=== PATIENT | male | born 1955 | race Caucasian/White ===

== ENCOUNTER 2017-01-26 12:39 | Inpatient (IN) | payer OTHER, MEDICARE ==
[~2017-01-26] VITALS: Ht 180.3 cm; Wt 80.8 kg
[2017-02-03] MEDS ORDERED: POVIDONE IODINE 7.5% SCRUB 118 ML BOTTLE TOPICAL SCH (06:30)
[2017-02-03] MEDS ORDERED: INSULIN HUMAN REGULAR 1,000 UNITS/10 ML VIAL SQ PRN (06:30)
[2017-02-03] MEDS ORDERED: SODIUM CHLORID 0.9% 500 ML IV PRN (06:30)
[2017-02-03] MEDS ORDERED: LACTATED RINGER'S 1000 ML IV PRN (06:30)
[2017-02-03] MEDS ORDERED: VANCOMYCIN 1000 MG/NS 250 ML (for <70 kg) IV SCH ×2 (06:30)
[2017-02-03] MEDS ORDERED: CHLORHEXIDINE GLUCONATE 2 % 1 PACK (2 CLOTHS) TOPICAL PRN (06:30)
[2017-02-03] MEDS ORDERED: POVIDONE IODINE 5% (ANTISEPSIS KIT) 4 APPLICATIONS EACH NARE PRN (06:30)
[2017-02-03] MEDS ORDERED: METOPROLOL TARTRATE 25 MG TAB PO PRN (06:30)
[2017-02-03 08:01] LABS: BLOOD, URINE SMALL (NEG); GLUCOSE,URINE 300 mg/dL (NEG); KETONE, URINE TRACE mg/dL (NEG); NITRITE,URINE NEG (NEG); PH, URINE 5.5 (5.0-8.5); URINE COLOR YELLOW (YELLW/STRAW)
[2017-02-03 08:02] LABS: COMMENT (UR) CATH-CULTURE IND; CULTURE IF INDICATED CATH CULTURE IND
[2017-02-03] MEDS ORDERED: DEXA4TAB PO (08:03)
[2017-02-03] MEDS ORDERED: TRAM50TA PO (08:03)
[2017-02-03] MEDS ORDERED: DOXA1TAB34 PO (08:03)
[2017-02-03] MEDS ORDERED: ASPI-110 PO (08:03)
[2017-02-03] MEDS ORDERED: PRAS10TA PO (08:03)
[2017-02-03] MEDS ORDERED: BACL20TA PO (08:03)
[2017-02-03] MEDS ORDERED: METO25TA3 PO (08:03)
[2017-02-03] MEDS ORDERED: ATOR40TA16 PO (08:03)
[2017-02-03] MEDS ORDERED: GENTAMICIN SULFATE 80 MG/2 ML VIAL ONE (08:36)
[2017-02-03] MEDS ORDERED: ceFAZolin INJ 1,000 MG VIAL ONE (08:36)
[2017-02-03] MEDS ORDERED: HYDROmorphone HCL PF 2 MG/ML VIAL ONE (08:42)
[2017-02-03] MEDS ORDERED: ACETAMINOPHEN 1000 MG/100 ML VIAL ONE (08:42)
[2017-02-03] MEDS ORDERED: FAMOTIDINE 20 MG/2 ML VIAL ONE (08:42)
[2017-02-03] MEDS ORDERED: BUPIVACAINE/EPINEPHRINE 0.25% 50 ML VIAL ONE (09:13)
[2017-02-03] MEDS: ceFAZolin 2 GM PREMIX 50 ML IV SCH ×2 (09:40→11:44)
[2017-02-03] MEDS ORDERED: ACETAMINOPHEN/HYDROcodone 325 MG/7.5 MG TAB PO PRN (14:00)
[2017-02-03] MEDS ORDERED: SODIUM CHLORIDE 0.9% FLUSH 5 ML FLUSH IVF PRN (14:00)
[2017-02-03] MEDS ORDERED: SOD PHOSPHATE/SOD BIPHOSPHATE (ADULT) ENEMA 133ML PR PRN (14:00)
[2017-02-03] MEDS ORDERED: BISACODYL 10 MG SUPP RECTAL PRN (14:00)
[2017-02-03] MEDS ORDERED: NALOXONE HCL 0.4 MG/ML AMP IV PRN (14:00)
[2017-02-03] MEDS ORDERED: MORPHINE SULFATE 4 MG/ML INJ IV PUSH PRN (14:00)
[2017-02-03] MEDS ORDERED: Post-op Orders (for Pharmacy) MISC XX ONE (14:00)
[2017-02-03] MEDS ORDERED: ALUMINUM/MAGNESIUM/SIMETH 30 ML CUP PO PRN (14:00)
[2017-02-03] MEDS ORDERED: ONDANSETRON HCL 4 MG/2 ML VIAL IV PRN (14:00)
--- NOTE | 2017-02-03 14:00 | PD.OP ---
cc: Lei Arana. Operative Report Date of Surgery: Feb 03, 2017 Preoperative Diagnosis: Herniated nucleus pulposis L2-3, left, sequestered. Lumbar spinal stenosis L2-3 and L3 4. Left lumbosacral radiculopathy. Segmental instability, L2-3. Possible instability, L3 4. Postoperative Diagnosis: Same. Fracture left L2-3 facet joint. CSF fistula left, L3 Procedure: Lumbar laminectomy from the left L2-3 and L3 4. Repair of CSF fistula left, L3. Posterior spinal fusion L2-3. Posterior lateral interbody fusion L2-3. Placement of interbody cage L2-3 from the left. Posterior segmental spinal instrumentation Major bone grafting of the lumbar spine Anesthesia: Gen. Surgeon: Lei Arana Burn Out Scarfing Operator(s): ALVARO Iglesias Operation and Findings: EBL: 200 cc INDICATION: This patient is a 61-year-old male with severe left leg pain and weakness. This study shows evidence of a very advanced instability on the left side at L2-3 with an acute scoliosis from failure of the facet joint at that level. This creates a foraminal stenosis. There is evidence of a large sequestered disc herniation extending below the disc space down almost to the L3 4 level. He presents for surgical treatment. NOTE: Kelly Iglesias PA-C was present for the entire surgical procedure as my central supply assistant. In my medical opinion her skill and care was necessary for the proper management of this patient. PROCEDURE: The patient was brought to the operating room and anesthetized in the supine position. The patient was rolled to a prone position on a Francisco frame on a Joshua table. All pressure points were protected in the back was scrubbed with alcohol followed by Hibiclens followed by ChloraPrep and draped sterilely. A timeout was done and antibiotics were given. AP and lateral radiographic images were used to identify the proper levels and perform skin markings. We started from the left side at the 23 level. A paramedian incision was made and a midline fascial incision was made. A dilating system was placed down to the interlaminar space and held provisionally to the side of the table. A high- speed bur under the microscope was used to perform a bilateral laminectomy from that side. A lateral recess decompression bilaterally was accomplished. A subtotal facet resection was accomplished. The crossing and exiting nerve roots were completely decompressed. We found that disc extended well under the L3 nerve root and extending down below the level LIII nerve root. We extended the laminectomy down to the L3 4 level gaining exposure to the axilla between L3 and L4. Working from above and below a total discectomy was accomplished. Along the side of the L3 pedicle there was a very sharp edge of bone and there was a small fistula in that region measuring approximately 5 mm long. This was repaired under the microscope with a 7-0 Prolene suture. Tisseel appeared to be watertight. The decompression was very satisfactory with significant extensive amount of time because the disc material had a very degenerative look to it. This was a high-grade stenosis prior to the decompression. An annulotomy was performed. A total discectomy was accomplished. All of the disc was removed from the disc space. The disc was then prepared for a cage. On the back table a combination of autogenous bone graft and stem cell material was mixed with demineralized bone matrix. This prepared on the back table to be used for bone grafting. The bone graft was placed into the disc space between the operative level. An a Stax cage was placed to the left of center between that level. There was no complication. The alignment was satisfactory. No significant bleeding was encountered. The wound was irrigated copiously. The fascia was closed with interrupted 0 Vicryl suture. Percutaneous screws were placed on the same side with a sequence of a small fascial incision, a bur down to the pedicle under fluoroscopy and placement of the guidepin within the proper position of the vertebral body. This measured carefully tapped and proper length screws were positioned. A percutaneous shahrzad was positioned according to print shop assistant's recommendation and tightened. Wounds irrigated copiously bone graft placed along the transverse process across that region. The fascia was closed with interrupted Vicryl suture subcutaneous history of suture and skin with running intradermal 3-0 Vicryl followed by Steri-Strips The attention directed to the opposite side. Percutaneous screws were positioned. Under fluoroscopy a small incision was made. An marcia was placed down through the pedicle followed by placement of a guide pin and measured and tapped for proper screw. The screws were advanced and a percutaneous shahrzad was placed according to print shop assistant's recommendation. This was then tightened. The wound was irrigated. Bone graft was placed along the transverse processes across that region. The fascia was closed with interrupted Vicryl suture, subcutaneous tissue with 2-0 Vicryl suture and skin with running intradermal 3- 0 Vicryl. Intraoperative x-rays were obtained alignment was satisfactory rotation was noted.. The sponge count needle counts and instrument counts were all correct. The patient tolerated procedure well was taken to the recovery room in satisfactory condition. FINDINGS: There was a severe stenosis with severe compression involving both the exiting L2 and crossing the L3 nerve roots. She scoliosis was corrected by using an expandable cage to left of midline at the L2-3 level. There was compression of the screws on the patient's right side which contributed to correction of the deformity. The final result appeared be very satisfactory. We could not identify an instability at the L3 4 level and shows diffuse all in the L2-3 level Lei Arana MD Feb 03, 2017 14:00
[2017-02-03] MEDS ORDERED: LACTATED RINGER'S 1000 ML INJ 2,000 ML IV ONE (14:04)
[2017-02-03] MEDS ORDERED: PHENYLEPH/NS 1000 MCG/10 ML SYR IV ONE (14:04)
[2017-02-03] MEDS ORDERED: ePHEDrine/NS 25 MG/5 ML SYR IV ONE (14:04)
[2017-02-03] MEDS ORDERED: PROPOFOL 200 MG/20 ML AMP IV ONE (14:04)
[2017-02-03] MEDS ORDERED: ONDANSETRON HCL 4 MG/2 ML VIAL IV PUSH ONE (14:04)
[2017-02-03] MEDS ORDERED: HYDR-3580 PO (14:04)
[2017-02-03] MEDS ORDERED: DO NOT ADM ANY ANTICOAGULANT DRUGS PRN (14:30)
[2017-02-03] MEDS ORDERED: fentaNYL CITRATE 250 MCG/5 ML AMP ONE ×2 (14:36)
[2017-02-03] MEDS: MORPHINE SULFATE 30 MG/30 ML PCA IV SCH (15:11)
[2017-02-03] MEDS: LACTATED RINGER'S 1000 ML INJ 1,000 ML IV SCH ×2 (15:11→20:55)
--- NOTE | 2017-02-03 15:28 | RADRPT ---
EXAM DATE/TIME: 02/03/2017 13:35 [place] COMPARISON: No previous studies available for comparison. INDICATIONS : Lumbar laminectomy and fusion of L2/3 MEDICAL HISTORY : Unobtainable. SURGICAL HISTORY : Unobtainable. ENCOUNTER: Initial ACUITY: 1 day PAIN SCORE: Non-responsive. LOCATION: Lumbar spine. FINDINGS: 2 spot intraoperative fluoroscopic views of the lumbar spine demonstrate posterior shahrzad and transpedic ular screw fixation and intervertebral fusion hardware placement. This is reportedly at the level of L2-3. CONCLUSION: Postoperative changes. Reilly Menard MD on February 03, 2017 at 15:26 Board Certified Radiologist. This report was verified electronically.
--- NOTE | 2017-02-03 15:38 | PD.CONS ---
[facility] By [facility] Physician Trenton Nascimento DO Diagnoses: History of Present Illness Mr. Lazcano is a 61-year-old male. He is status post lumbar fusion surgery today. When seen in the postop area still lethargic and not able to provide good history. Based on medications that he has listed it can be inferred that he has hypertension and hyperlipidemia. He may have a history of vascular disease or coronary artery disease based on his use of Effient and aspirin. Chronic pain is likely present due to his use of tramadol and this is also likely the reason that he had a lumbar spine fusion today. He is on baclofen 3 times a day which may represent complications of his lower back pain. He is also on dexamethasone which could be related to chronic back pain also. Doxazosin is present which would treat BPH so I think this is present also and a UA done preop suggests that he may have a urinary tract infection. BPH and predispose him for urinary tract infections. Lethargy may be purely related to anesthesia but could be also related to encephalopathy from the infection compounding with the anesthesia. We'll monitor outpatient comes out of anesthesia. Vital signs are stable thus far. Review of Systems ROS Limitations: Clinical Condition, Altered Mental Status, Unresponsive Past Family Social History Allergies: Coded Allergies: No Known Allergies (Unverified , 02/03/17) Past Medical History Unable to obtain at this point but medications and known history are suggestive of chronic lower back pain, hypertension, hyperlipidemia, BPH and possible vascular disease. Past Surgical History Unknown Patient had lumbar spine surgery today Reported Medications Reported Meds & Active Scripts Active Hydrocodone-Acetaminophen 7.5-325 mg Tab 1 Tab PO Q4H PRN Reported Aspirin 81 (Aspirin) 81 Mg Tabdr 81 Mg PO DAILY Tramadol (Tramadol HCl) 50 Mg Tab 50 Mg PO Q6H PRN Baclofen 20 Mg Tab 20 Mg PO TID Metoprolol Tartrate 25 Mg Tab 25 Mg PO DAILY Dexamethasone 4 Mg Tab 4 Mg PO DAILY Effient (Prasugrel) 10 Mg Tab 10 Mg PO DAILY Atorvastatin (Atorvastatin Calcium) 40 Mg Tab 40 Mg PO DAILY Doxazosin (Doxazosin Mesylate) 4 Mg Tab 4 Mg PO DAILY Active Ordered Medications Administered Medications Medications (Trade) Dose Ordered Sig/Cristian Route PRN Reason Start Time Stop Time Status Last Admin Dose Admin Povidone Iodine (Betadine 5% Antisepsis Kit) 1 applic SENIOR SQL SERVER DAT[employer]ASE DEVELOPER PRN EACH NARE SEE LABEL COMMENTS 02/03/17 06:30 02/06/17 06:29 02/03/17 07:45 Chlorhexidine Gluconate (Chlorhexidine 2% Cloth) 3 pack S[employer]IOR [employer] SERVER DAT[employer]ASE DEVELOPER PRN TOPICAL SEE LABEL COMMENTS 02/03/17 06:30 02/06/17 06:29 02/03/17 06:25 Cefazolin Sodium/ Dextrose 50 ml @ 100 mls/hr SENIOR [employer] SERVER DAT[employer]ASE DEVELOPER IV 02/03/17 06:30 02/06/17 06:29 02/03/17 09:40 Vancomycin HCl 1000 mg/Sodium Chloride 250 ml @ 250 mls/hr SENIOR [employer] SERVER DATABASE DEVELOPER IV 02/03/17 06:30 02/06/17 06:29 02/03/17 07:59 Family History Unknown and unavailable to obtain from patient given his current status Social History Unknown and unable to determine from patient given his current status. We'll monitor for any delirium tremens. Physical Exam Vital Signs Vital Signs Date Time Temp Pulse Resp B/P (MAP) Pulse Ox O2 Delivery O2 Flow Rate FiO2 02/03/17 07:30 97.7 71 18 110/65 (80) 96 Physical Exam GENERAL: NAD, A&Ox0, lethargy HEAD: Normocephalic. NECK: Supple, trachea midline. No lymphadenopathy. EYES: No scleral icterus. No injection or drainage. CARDIOVASCULAR: Regular rate and rhythm without murmurs, gallops, or rubs. RESPIRATORY: Breath sounds equal bilaterally. No accessory muscle use. GASTROINTESTINAL: Abdomen soft, non-tender, nondistended. MUSCULOSKELETAL: No cyanosis, or edema. SKIN: Warm and dry. NEURO: No focal neurological deficitis. Laboratory Laboratory Tests Test 02/03/17 07:25 Urine Color YELLOW Urine Turbidity HAZY Urine pH 5.5 Urine Specific [place] 1.030 Urine Protein TRACE Urine Glucose (UA) 300 Urine Ketones TRACE Urine Occult Blood SMALL Urine Nitrite NEG Urine Bilirubin NEG Urine Urobilinogen 4.0 Urine Leukocyte Esterase SMALL Urine RBC 5 Urine WBC 29 Microscopic Urinalysis Comment CATH-CULTURE IND Date/Time Source Procedure Growth Status 02/03/17 07:25 Urine Catheterized Urine Urine Culture Pending Received Assessment and Plan Problem List: (1) BPH (benign prostatic hyperplasia) ICD Code: N40.0 - Benign prostatic hyperplasia without lower urinary tract symptoms (2) Chronic lower back pain ICD Code: M54.5 - Low back pain; G89.29 - Other chronic pain (3) Hyperlipidemia ICD Code: E78.5 - Hyperlipidemia, unspecified (4) HTN (hypertension) ICD Code: I10 - Essential (primary) hypertension Assessment and Plan Assessment and plan 61-year-old male status post lumbar spine fusion. Chronic lower back pain Postop lumbar spinal fusion Neurosurgery following When necessary pain treatments Postop at this point Postsurgical care and wound care Lethargy May be secondary to anesthesia Treatment infection as below Follow for improvement Vital signs stable Obtain CBC and CMP BPH Continue doxazosin Urinary tract infection Ancef given preop and should cover the patient for now We'll start Rocephin in the morning 1 g IV every 24 hours. Hyperlipidemia Resume statin Follow as an outpatient Hypertension Resume metoprolol with blood pressures are stable and elevated DVT prophylaxis SCDs for now Resume Effient in the morning Tony Ramirez MD Feb 03, 2017 15:38
[2017-02-03 16:32] LABS: AUTOMATED NEUTROPHIL # 9.3 TH/MM3 (1.8-7.7); BASOPHIL % 0.3 % (0.0-2.0); EOSINOPHIL # 0.1 TH/MM3 (0-0.4); EOSINOPHIL % 0.5 % (0.0-4.0); HEMATOCRIT 37.4 % (39.0-51.0); HEMO FLAGS DIFF FINAL; LYMPH % 12.2 % (9.0-44.0); LYMPHOCYTE # 1.4 TH/MM3 (1.0-4.8); MEAN CELL VOLUME 98.4 FL (80.0-100.0); MEAN CORPUSCULAR HEMOGLOBIN 31.5 PG (27.0-34.0); MONO % 4.9 % (0.0-8.0); NEUT % 82.1 % (16.0-70.0); PLATELET COUNT 165 TH/MM3 (150-450); RED CELL DISTRIBUTION WIDTH 14.2 % (11.6-17.2); WHITE BLOOD COUNT 11.3 TH/MM3 (4.0-11.0)
[2017-02-03 16:52] LABS: ANION GAP 6 MEQ/L (5-15); AST (GOT) 19 U/L (15-37); BICARBONATE 25.8 MEQ/L (21.0-32.0); BLOOD UREA NITROGEN 8 MG/DL (7-18); CHLORIDE 104 MEQ/L (98-107); GLOMERULAR FILTRATION RATE 95 ML/MIN (>89); POTASSIUM 3.6 MEQ/L (3.5-5.1); SODIUM (NA) 136 MEQ/L (136-145)
[2017-02-03 16:53] LABS: ALT (GPT) 27 U/L (12-78)
[2017-02-03 16:55] LABS: ALKALINE PHOSPHATASE 77 U/L (45-117); TOTAL BILIRUBIN ADULT 0.5 MG/DL (0.2-1.0)
[2017-02-03] MEDS: BACLOFEN 20 MG TAB PO SCH (18:00)
[2017-02-03 19:05] VITALS: BP 106/69; PULSE 79; RESP 18; TEMP 95.9; O2SAT 100
[2017-02-03] MEDS: SODIUM CHLORIDE 0.9% FLUSH 5 ML FLUSH IVF SCH (21:00)
[2017-02-03] MEDS ORDERED: ZOLPIDEM TARTRATE 5 MG TAB PO PRN (21:00)
[2017-02-03 23:00] VITALS: BP 115/70; PULSE 77; RESP 18; TEMP 98.4; O2SAT 99
[2017-02-04] VITALS (8 sets, daily range): BP systolic 119–151; BP diastolic 61–87; PULSE 75–96; RESP 17–18; TEMP 96.1–97.5; O2SAT 95–100
[2017-02-04] MEDS ORDERED: PCA - TOTAL MG MORPHINE DELIVERED PER SHIFT SCH (06:00)
[2017-02-04] MEDS: MORPHINE SULFATE 30 MG/30 ML PCA IV SCH (06:52)
[2017-02-04 08:11] LABS: HEMATOCRIT 36.7 % (39.0-51.0); MEAN CELL VOLUME 99.6 FL (80.0-100.0); MEAN CORPUSCULAR HEMOGLOBIN 32.1 PG (27.0-34.0); MEAN CORPUSCULAR HGB CONC 32.2 % (32.0-36.0); PLATELET COUNT 161 TH/MM3 (150-450); RED BLOOD COUNT 3.68 MIL/MM3 (4.50-5.90); REVIEW FLAG FINAL; WHITE BLOOD COUNT 8.1 TH/MM3 (4.0-11.0)
[2017-02-04 08:39] LABS: BICARBONATE 28.1 MEQ/L (21.0-32.0); POTASSIUM 3.6 MEQ/L (3.5-5.1)
[2017-02-04] MEDS: SODIUM CHLORIDE 0.9% FLUSH 5 ML FLUSH IVF SCH ×2 (09:00→20:53)
--- NOTE | 2017-02-04 09:27 | HHI.PR ---
Subjective Remarks Further history obtained from the patient today. He reports that he has a history of old HI and has coronary stents. This would be why he is on Effient. Effient has been continued. Additionally he admits to drinking about 6 beers per night. He also smokes between 1 and 1.5 packs per day of cigarettes. Pain is controlled and seen. No new complaints. No nausea or vomiting. Objective Vital Signs Date Time Temp Pulse Resp B/P (MAP) Pulse Ox O2 Delivery O2 Flow Rate FiO2 02/04/17 08:00 97.2 90 18 128/61 (83) 98 02/04/17 05:36 98 Nasal Cannula 4.00 02/04/17 03:57 97.4 93 18 120/76 (91) 95 02/03/17 23:00 98.4 77 18 115/70 (85) 99 02/03/17 19:05 95.9 79 18 106/69 (81) 100 02/03/17 18:56 Nasal Cannula 02/03/17 18:00 98.0 79 17 112/66 (81) 98 Nasal Cannula 2 02/03/17 17:00 82 13 132/69 (90) 99 Nasal Cannula 2 02/03/17 16:00 76 13 113/66 (82) 97 Nasal Cannula 2 02/03/17 15:30 77 15 123/63 (83) 96 Nasal Cannula 2 02/03/17 15:15 79 14 113/72 (86) 94 Nasal Cannula 2 02/03/17 15:11 17 02/03/17 15:00 80 15 112/70 (84) 94 Nasal Cannula 2 02/03/17 14:45 84 16 112/68 (83) 96 Nasal Cannula 2 02/03/17 14:30 82 16 111/59 (76) 94 Nasal Cannula 2 02/03/17 14:24 98.5 86 16 108/63 (78) 100 Nasal Cannula 2 I/O 02/03/17 02/03/17 02/03/17 02/04/17 02/04/17 02/04/17 06:59 14:59 22:59 06:59 14:59 22:59 Intake Total 2350 ml 399 ml 1316 ml Output Total 300 ml 375 ml 550 ml Balance 2050 ml 24 ml 766 ml Intake Oral 0 ml 360 ml IV Total 2350 ml 399 ml 956 ml Output Urine Total 200 ml 375 ml 550 ml Estimated Blood Loss 100 ml # Bowel Movements 0 0 Result Diagram: 02/04/1773902/04/17739 Objective Remarks GENERAL: NAD, A&Ox3 HEAD: Normocephalic. NECK: Supple, trachea midline. No lymphadenopathy. EYES: No scleral icterus. No injection or drainage. CARDIOVASCULAR: Regular rate and rhythm without murmurs, gallops, or rubs. RESPIRATORY: Breath sounds equal bilaterally. No accessory muscle use. GASTROINTESTINAL: Abdomen soft, non-tender, nondistended. MUSCULOSKELETAL: No cyanosis, or edema. SKIN: Warm and dry. NEURO: No focal neurological deficitis. A/P Problem List: (1) Coronary artery disease ICD Code: I25.10 - Atherosclerotic heart disease of [place] coronary artery without angina pectoris (2) Old HI (myocardial infarction) ICD Code: I25.2 - Old myocardial infarction (3) Nicotine dependence ICD Code: F17.200 - Nicotine dependence, unspecified, uncomplicated (4) Alcohol abuse ICD Code: F10.10 - Alcohol abuse, uncomplicated (5) Chronic lower back pain ICD Code: M54.5 - Low back pain; G89.29 - Other chronic pain (6) BPH (benign prostatic hyperplasia) ICD Code: N40.0 - Benign prostatic hyperplasia without lower urinary tract symptoms (7) HTN (hypertension) ICD Code: I10 - Essential (primary) hypertension (8) Hyperlipidemia ICD Code: E78.5 - Hyperlipidemia, unspecified Assessment and Plan Assessment and plan 61-year-old male status post lumbar spine fusion. Doing well postop. No complaints of chest pain, nausea vomiting, or diarrhea. Pain is controlled. Add CIWA protocol, multivitamin, thiamine, folic acid, when necessary Ativan, NicoDerm. Chronic lower back pain Postop lumbar spinal fusion Neurosurgery following When necessary pain treatments Postop at this point Postsurgical care and wound care Coronary artery disease History of old HI Continue Effient Continue beta pam Continue statin Follow clinically for chest pain Lethargy Resolved BPH Continue doxazosin Nicotine dependence NicoDerm started Patient comes to quit Alcohol abuse Proximally 6 beers per day CIWA protocol initiated Daily thiamine Daily folic acid Daily multivitamin When necessary Ativan for withdrawal symptoms Urinary tract infection Ancef given preop and should cover the patient for now We'll start Rocephin in the morning 1 g IV every 24 hours. Hyperlipidemia Resume statin Follow as an outpatient Hypertension Resume metoprolol with blood pressures are stable and elevated DVT prophylaxis SCDs for now Resume Effient in the morning Tony Ramirez MD Feb 04, 2017 09:27
[2017-02-04] MEDS ORDERED: FLUMAZENIL 0.5 MG/5 ML VIAL IV PUSH PRN (09:30)
[2017-02-04] MEDS ORDERED: SODIUM CHLORIDE 0.9% FLUSH 10 ML FLUSH IV FLUSH PRN (09:30)
[2017-02-04] MEDS ORDERED: LORazepam 1 MG TAB PO PRN (09:30)
[2017-02-04] MEDS ORDERED: LORazepam 2 MG/ML VIAL IV PUSH PRN ×4 (09:30)
[2017-02-04] MEDS ORDERED: LORazepam 2 MG TAB PO PRN (09:30)
[2017-02-04] MEDS: cefTRIAXone INJ 1,000 MG in SODIUM CHLORIDE 0.9% INJ 100 ML IV SCH (09:38)
[2017-02-04] MEDS ORDERED: NICOTINE 21 MG/24 HR PATCH T-DERMAL ONE (10:00)
[2017-02-04] MEDS ORDERED: FOLIC ACID 1 MG TAB PO ONE (10:00)
[2017-02-04] MEDS ORDERED: THIAMINE HCL 100 MG TAB PO ONE (10:00)
[2017-02-04] MEDS ORDERED: MULTIVITAMIN TAB PO ONE (10:00)
[2017-02-04] MEDS: METOPROLOL TARTRATE 25 MG TAB PO SCH (11:59)
[2017-02-04] MEDS: DOXAZOSIN MESYLATE 4 MG TAB PO SCH (11:59)
[2017-02-04] MEDS: ATORVASTATIN 40 MG TAB PO SCH (11:59)
[2017-02-04] MEDS: DEXAMETHASONE 4 MG TAB PO SCH (12:00)
[2017-02-04] MEDS: BACLOFEN 20 MG TAB PO SCH ×3 (13:00→18:21)
--- NOTE | 2017-02-04 13:41 | PD.ORT.PN ---
Subjective Subjective Remarks He is very pleased that his left leg pain is better. With tears in his eyes he states he is 'beyond thankful' that is left leg is better. He has moderate low back pain. He denies any new symptoms. He does had a cough but has a substantial history of COPD. He has questions about surgery. He denies any CP or abd pain. Objective Vitals Vital Signs Date Time Temp Pulse Resp B/P (MAP) Pulse Ox O2 Delivery O2 Flow Rate FiO2 02/04/17 12:00 97.2 91 18 151/87 (108) 99 02/04/17 09:35 95 Nasal Cannula 4.00 02/04/17 08:00 97.2 96 18 128/61 (83) 98 02/04/17 08:00 97.2 90 18 128/61 (83) 98 02/04/17 05:36 98 Nasal Cannula 4.00 02/04/17 03:57 97.4 93 18 120/76 (91) 95 02/03/17 23:00 98.4 77 18 115/70 (85) 99 02/03/17 19:05 95.9 79 18 106/69 (81) 100 02/03/17 18:56 Nasal Cannula 02/03/17 18:00 98.0 79 17 112/66 (81) 98 Nasal Cannula 2 02/03/17 17:00 82 13 132/69 (90) 99 Nasal Cannula 2 02/03/17 16:00 76 13 113/66 (82) 97 Nasal Cannula 2 02/03/17 15:30 77 15 123/63 (83) 96 Nasal Cannula 2 02/03/17 15:15 79 14 113/72 (86) 94 Nasal Cannula 2 02/03/17 15:11 17 02/03/17 15:00 80 15 112/70 (84) 94 Nasal Cannula 2 02/03/17 14:45 84 16 112/68 (83) 96 Nasal Cannula 2 02/03/17 14:30 82 16 111/59 (76) 94 Nasal Cannula 2 02/03/17 14:24 98.5 86 16 108/63 (78) 100 Nasal Cannula 2 I/O 02/03/17 02/03/17 02/03/17 02/04/17 02/04/17 02/04/17 07:00 15:00 23:00 07:00 15:00 23:00 Intake Total 2350 ml 399 ml 1316 ml Output Total 300 ml 375 ml 550 ml Balance 2050 ml 24 ml 766 ml Intake Oral 0 ml 360 ml IV Total 2350 ml 399 ml 956 ml Output Urine Total 200 ml 375 ml 550 ml Estimated Blood Loss 100 ml # Bowel Movements 0 0 Result Diagram: 02/04/1773902/04/17739 Objective Remarks Laying in bed at 45 degrees NAD Nasal cannula in place L/S Dressing intact, mild SS drainage, mild spasms, some warmth but no erythema +motor quad, some weakness left hip flexor, +sens distal, Both calves supple, neg homans Assessment & Plan Ortho Post Op Day #: 1 Problem List: Assessment and Plan pod#1 s/p Left Lami L23, L34; repair csf fistula left L23, PSF/PLIF L23, bone graft. D/C VENE[facility] SANDER - change to po pain meds. Dry dressing changes daily beginning pod#2. PT - ok to sit up in bed and ambulate with assistance. Limited walking (less than 90 minutes daily) as he is recovering from CSF fistula repair. Walker for gait assistance. Med following as pt has COPD, HTN, recent UTI. D/C planning, likely will need to go to SNF. Prefers [facility] but will look into options. DME written. Patti Diaz Feb 04, 2017 13:41
[2017-02-04] MEDS ORDERED: WALKER WHEELS/F1 MIS (13:42)
[2017-02-04] MEDS: LACTATED RINGER'S 1000 ML INJ 1,000 ML IV SCH (14:50)
[2017-02-04] MEDS: PRASUGREL 10 MG TAB PO SCH (15:00)
[2017-02-04] MEDS: DOCUSATE SODIUM 100 MG CAP PO SCH (20:50)
[2017-02-04] MEDS ORDERED: SODIUM CHLORIDE 0.9% FLUSH 10 ML FLUSH IV FLUSH SCH (21:00)
[2017-02-05] MEDS: LACTATED RINGER'S 1000 ML INJ 1,000 ML IV SCH ×2 (03:20→12:46)
[2017-02-05 04:31] VITALS: BP 140/72; PULSE 85; RESP 18; TEMP 96.9; O2SAT 95
[2017-02-05] MEDS: ACETAMINOPHEN/HYDROcodone 325 MG/7.5 MG TAB PO PRN ×4 (06:10→22:21)
[2017-02-05 08:00] VITALS: BP 119/80; PULSE 77; RESP 17; TEMP 95.6; O2SAT 96
[2017-02-05] MEDS: SODIUM CHLORIDE 0.9% FLUSH 5 ML FLUSH IVF SCH ×2 (08:49→22:21)
[2017-02-05] MEDS: cefTRIAXone INJ 1,000 MG in SODIUM CHLORIDE 0.9% INJ 100 ML IV SCH (08:49)
[2017-02-05] MEDS: DEXAMETHASONE 4 MG TAB PO SCH (08:50)
[2017-02-05] MEDS: DOCUSATE SODIUM 100 MG CAP PO SCH ×2 (08:50→22:20)
[2017-02-05] MEDS: METOPROLOL TARTRATE 25 MG TAB PO SCH (08:51)
[2017-02-05] MEDS: FOLIC ACID 1 MG TAB PO SCH (08:51)
[2017-02-05] MEDS: MULTIVITAMIN TAB PO SCH (08:51)
[2017-02-05] MEDS: THIAMINE HCL 100 MG TAB PO SCH (08:51)
[2017-02-05] MEDS: ATORVASTATIN 40 MG TAB PO SCH (08:51)
[2017-02-05] MEDS: REMOVE OLD PATCH T-DERMAL SCH (08:52)
[2017-02-05] MEDS: NICOTINE 21 MG/24 HR PATCH T-DERMAL SCH (08:52)
--- NOTE | 2017-02-05 08:52 | PD.ORT.PN ---
Subjective Subjective Remarks He continues to do well with his left leg. He is struggling with back pain but appropriately. He is using nicotine patches since he is a pack a day smoker. He continues to have a slight cough, no worse than his previous exam. He states he feels as though he is breathing 'just fine'. He denies any new leg symptoms. He denies any new CP or abd pain. Objective Vitals Vital Signs Date Time Temp Pulse Resp B/P (MAP) Pulse Ox O2 Delivery O2 Flow Rate FiO2 02/05/17 04:31 96.9 85 18 140/72 (94) 95 02/04/17 23:55 96.8 75 17 131/73 (92) 95 02/04/17 20:30 97.5 94 18 123/80 (94) 99 02/04/17 16:00 96.1 82 18 119/76 (90) 100 02/04/17 12:00 97.2 91 18 151/87 (108) 99 02/04/17 09:35 95 Nasal Cannula 4.00 I/O 02/04/17 02/04/17 02/04/17 02/05/17 02/05/17 02/05/17 06:59 14:59 22:59 06:59 14:59 22:59 Intake Total 1316 ml 800 ml 720 ml 1360 ml Output Total 550 ml 1000 ml 325 ml Balance 766 ml 800 ml -280 ml 1035 ml Intake Oral 360 ml 600 ml 720 ml 360 ml IV Total 956 ml 200 ml 1000 ml Output Urine Total 550 ml 1000 ml 325 ml # Voids 3 2 # Bowel Movements 0 0 0 Result Diagram: 02/04/17 0740 02/04/17 0740 Objective Remarks Sitting up in bed, RN at bedside NAD Nasal cannula removed L/S Dressing intact, no new drainage, mild spasms, some warmth but no erythema +motor quad, continued weakness left hip flexor, +sens distal, Both calves supple, neg homans Assessment & Plan Ortho Post Op Day #: 2 Problem List: Assessment and Plan pod#2 s/p Left Lami L23, L34; repair csf fistula left L23, PSF/PLIF L23, bone graft. His left leg is doing well. Some continued weakness but pain controlled. Appropriate low back pain following surgery. PO pain meds as needed. Dry dressing changes daily. PT - ok to sit up in bed and ambulate with assistance. We will make sure PT sees him today and tomorrow. Walker for gait assistance. Med following as pt has COPD, HTN, recent UTI. Nicotine patch for tobacco addiction/cessation D/C planning, likely will need to go to SNF tomorrow. DME written. Patti Diaz Feb 05, 2017 08:52
[2017-02-05] MEDS: DOXAZOSIN MESYLATE 4 MG TAB PO SCH (08:54)
--- NOTE | 2017-02-05 08:55 | HHI.DCPOC ---
Discharge Care Plan Diagnosis: (1) Chronic lower back pain (2) Nicotine dependence (3) Lumbar disc herniation with radiculopathy (4) Lumbar spine instability (5) COPD (chronic obstructive pulmonary disease) Your Health Problems Are: Incision/Drains Swelling Shortness of Breath Goals to Promote Your Health * To prevent worsening of your condition and complications * To maintain your health at the optimal level Directions to Meet Your Goals Take your medications as prescribed Follow your dietary instruction Follow activity as directed Keep your appointments as scheduled Take your immunizations and boosters as scheduled If your symptoms worsen call your PCP, if no PCP go to Urgent Care Center or Emergency Room Smoking is Dangerous to Your Health. Avoid second hand smoke Call the 24-hour hour crisis hotline for domestic abuse at Patti Diaz Feb 05, 2017 08:55
[2017-02-05] MEDS: PRASUGREL 10 MG TAB PO SCH (09:00)
[2017-02-05] MEDS: BACLOFEN 20 MG TAB PO SCH ×3 (09:01→18:11)
--- NOTE | 2017-02-05 09:36 | HHI.PR ---
Subjective Remarks Patient is doing well today. He isn't depressed with lack of pain he has of his left leg. No reports of chest pain. Objective Vital Signs Date Time Temp Pulse Resp B/P (MAP) Pulse Ox O2 Delivery O2 Flow Rate FiO2 02/05/17 04:31 96.9 85 18 140/72 (94) 95 02/04/17 23:55 96.8 75 17 131/73 (92) 95 02/04/17 20:30 97.5 94 18 123/80 (94) 99 02/04/17 16:00 96.1 82 18 119/76 (90) 100 02/04/17 12:00 97.2 91 18 151/87 (108) 99 I/O 02/04/17 02/04/17 02/04/17 02/05/17 02/05/17 02/05/17 07:00 15:00 23:00 07:00 15:00 23:00 Intake Total 1316 ml 800 ml 720 ml 1360 ml Output Total 550 ml 1000 ml 325 ml Balance 766 ml 800 ml -280 ml 1035 ml Intake Oral 360 ml 600 ml 720 ml 360 ml IV Total 956 ml 200 ml 1000 ml Output Urine Total 550 ml 1000 ml 325 ml # Voids 3 2 # Bowel Movements 0 0 0 Result Diagram: 02/04/1740 02/04/17 0740 Objective Remarks GENERAL: NAD, A&Ox3 HEAD: Normocephalic. NECK: Supple, trachea midline. No lymphadenopathy. EYES: No scleral icterus. No injection or drainage. CARDIOVASCULAR: Regular rate and rhythm without murmurs, gallops, or rubs. RESPIRATORY: Breath sounds equal bilaterally. No accessory muscle use. GASTROINTESTINAL: Abdomen soft, non-tender, nondistended. MUSCULOSKELETAL: No cyanosis, or edema. SKIN: Warm and dry. NEURO: No focal neurological deficitis. A/P Problem List: (1) Coronary artery disease ICD Code: I25.10 - Atherosclerotic heart disease of [place] coronary artery without angina pectoris (2) Old [place] (myocardial infarction) ICD Code: I25.2 - Old myocardial infarction (3) Nicotine dependence ICD Code: F17.200 - Nicotine dependence, unspecified, uncomplicated (4) Alcohol abuse ICD Code: F10.10 - Alcohol abuse, uncomplicated (5) Chronic lower back pain ICD Code: M54.5 - Low back pain; G89.29 - Other chronic pain (6) BPH (benign prostatic hyperplasia) ICD Code: N40.0 - Benign prostatic hyperplasia without lower urinary tract symptoms (7) HTN (hypertension) ICD Code: I10 - Essential (primary) hypertension (8) Hyperlipidemia ICD Code: E78.5 - Hyperlipidemia, unspecified Assessment and Plan Assessment and plan 61-year-old male status post lumbar spine fusion. Doing well postop. Patient is eager work with PT. He continued to do physical therapy. Augmentin added to Rocephin for antibiotic treatments of UTIs given 2 separate organisms with split sensitivities. When patient discharges he'll discharge on oral antibiotics. Follow urine cultures. Chronic lower back pain Postop lumbar spinal fusion Neurosurgery following When necessary pain treatments Postop at this point Postsurgical care and wound care Coronary artery disease History of old [place] Continue Effient Continue beta pam Continue statin Follow clinically for chest pain Lethargy Resolved BPH Continue doxazosin Nicotine dependence NicoDerm started Patient comes to quit Alcohol abuse Proximally 6 beers per day CIWA protocol initiated Daily thiamine Daily folic acid Daily multivitamin When necessary Ativan for withdrawal symptoms Urinary tract infection Ancef given preop and should cover the patient for now We'll start Rocephin in the morning 1 g IV every 24 hours. Hyperlipidemia Resume statin Follow as an outpatient Hypertension Resume metoprolol with blood pressures are stable and elevated DVT prophylaxis SCDs for now Resume Effient in the morning Tony Ramirez MD Feb 05, 2017 09:36
[2017-02-05 12:00] VITALS: BP 125/67; PULSE 79; RESP 17; TEMP 96.9; O2SAT 97
[2017-02-05 16:00] VITALS: BP 136/75; PULSE 68; RESP 17; TEMP 97; O2SAT 98
[2017-02-05 20:00] VITALS: BP 142/85; PULSE 87; RESP 20; TEMP 97.6; O2SAT 97
[2017-02-06] VITALS: BP 139/83; PULSE 77; RESP 16; TEMP 97.4; O2SAT 98
[2017-02-06] MEDS: ACETAMINOPHEN/HYDROcodone 325 MG/7.5 MG TAB PO PRN ×3 (02:41→15:18)
[2017-02-06 04:10] VITALS: BP 130/86; PULSE 79; RESP 16; TEMP 98; O2SAT 96
[2017-02-06] MEDS: LACTATED RINGER'S 1000 ML INJ 1,000 ML IV SCH (04:20)
[2017-02-06 07:51] VITALS: BP 145/83; PULSE 79; RESP 18; TEMP 96.6; O2SAT 97
--- NOTE | 2017-02-06 07:52 | HHI.DS ---
Discharge Summary Admission Date Feb 03, 2017 at 05:52 Discharge Date: Feb 06, 2017 Admitting Diagnosis see below Diagnosis: (1) Lumbar disc herniation with radiculopathy Diagnosis: Principal ICD Codes: M51.16 - Intervertebral disc disorders with radiculopathy, lumbar region (2) Lumbar spine instability Diagnosis: Principal ICD Codes: M53.2X6 - Spinal instabilities, lumbar region (3) Degeneration of intervertebral disc of lumbar region Diagnosis: Principal ICD Codes: M51.36 - Other intervertebral disc degeneration, lumbar region Procedures Left Laminectomy L23, L34, repair csf leak L23, posterior lumbar fusion L23, bone graft. Brief History This is a 61 year old male patient with 10 month history of back and left thigh pain following a fall at home fall of 2016. He began having back, thigh and leg pain following the fall but did not seek any medical treatment for 4-5 months hoping it would heal on its own. He saw his PCP in august or september 2016. Imaging studies were ordered and he was given tramadol for pain. Xrays of the hip were negative so he was referred to orthopaedics. He began to develop substantial weakness in his left hip flexor. An MRI was ordered showing a large disc herniation L23 extending to L34 in addition to a degenerative, unstable L23 level. Surgical treatment in the form of Laminectomy L23, L34 and fusion L23 was recommended due to his rapidly declining motor function. The patient agreed and presents for the above. CBC/BMP: 02/04/17 0740 02/04/17 0740 Significant Findings Laboratory Tests Test 02/03/17 16:17 02/04/17 07:40 White Blood Count 11.3 TH/MM3 (4.0-11.0) Red Blood Count 3.80 MIL/MM3 (4.50-5.90) 3.68 MIL/MM3 (4.50-5.90) Hemoglobin 11.9 GM/DL (13.0-17.0) 11.8 GM/DL (13.0-17.0) Hematocrit 37.4 % (39.0-51.0) 36.7 % (39.0-51.0) Neutrophils (%) (Auto) 82.1 % (16.0-70.0) Neutrophils # (Auto) 9.3 TH/MM3 (1.8-7.7) Random Glucose 109 MG/DL (74-106) Total Protein 5.2 GM/DL (6.4-8.2) Albumin 2.5 GM/DL (3.4-5.0) Blood Urea Nitrogen 6 MG/DL (7-18) Calcium Level 8.0 MG/DL (8.5-10.1) PE at Discharge Sitting up in bed, RN at bedside NAD Nasal cannula removed L/S Dressing intact, no new drainage, mild spasms, some warmth but no erythema +motor quad, continued weakness left hip flexor, +sens distal, Both calves supple, neg homans Hospital Course Surgical treatment was performed on the day of admission. A CSF leak was encountered during surgical treatment and repaired. The patient recovered well in PACU and was transferred to the orthopaedic floor. Pain was controlled with IV and oral medications. He was kept supine for 24 hours. After that time he found his leg pain to improve and denied any significant headache. The patient was compliant with physical therapy his lumbar brace and all restrictions. After 3 days he was found to be stable and [facility] He was instructed to continue his lumbar brace when out of bed for 10-12 weeks, to avoid strenuous activity, to take his oral pain medication as needed and to pursue a high fiber diet for 3-5 days. Pt Condition on Discharge: Stable Discharge Disposition: Discharge to SNF Discharge Instructions Diet Instructions: As Tolerated, No Restrictions, High Fiber Diet Activities You Can Perform: Weight Bearing as Ruma, See Additionl Instruction Activities to Avoid: Strenuous Activity Additional Activity Instruc.: Limited activity. Walk daily. Out of bed with brace for 10-12 weeks. New Medications: Walker with Front Wheels (Walker with Front Wheels) 1 Mis Mis EA .ROUTE DIRECTED, #1 0 Refills Hydrocodone-Acetaminophen (Hydrocodone-Acetaminophen) 7.5-325 mg Tab 1 TAB PO Q4H PRN for pain, #50 TAB Continued Medications: Aspirin DR (Aspirin 81) 81 Mg Tabdr 81 MG PO DAILY, TAB 0 Refills Atorvastatin (Atorvastatin) 40 Mg Tab 40 MG PO DAILY for Cholesterol Management, #30 TAB 0 Refills Baclofen (Baclofen) 20 Mg Tab 20 MG PO TID for Muscle Spasm, TAB 0 Refills Dexamethasone (Dexamethasone) 4 Mg Tab 4 MG PO DAILY, #30 TAB 0 Refills Doxazosin (Doxazosin) 4 Mg Tab 4 MG PO DAILY, TAB 0 Refills Metoprolol Tartrate (Metoprolol Tartrate) 25 Mg Tab 25 MG PO DAILY, #30 TAB 0 Refills Prasugrel (Effient) 10 Mg Tab 10 MG PO DAILY for Blood Clot Prevention, #30 TAB 0 Refills Tramadol (Tramadol) 50 Mg Tab 50 MG PO Q6H PRN for PAIN, TAB 0 Refills Patti Diaz Feb 06, 2017 07:52
--- NOTE | 2017-02-06 07:55 | PD.ORT.PN ---
Subjective Subjective Remarks He is pleased overall. He continues to do well with his left leg. Moderate low back pain. He did well w PT yesterday and walked. He is using nicotine patches since he is a pack a day smoker. Slight persistent cough due to COPD. Urinating well. He is ok w D/C to rehab today. He continues to have a slight cough, no worse than his previous exam. He denies any new leg symptoms. He denies any new CP or abd pain. Objective Vitals Vital Signs Date Time Temp Pulse Resp B/P (MAP) Pulse Ox O2 Delivery O2 Flow Rate FiO2 02/06/17 04:10 98.0 79 16 130/86 (101) 96 02/06/17 00:00 97.4 77 16 139/83 (101) 98 02/05/17 20:00 97.6 87 20 142/85 (104) 97 02/05/17 16:00 97.0 68 17 136/75 (95) 98 02/05/17 12:00 96.9 79 17 125/67 (86) 97 02/05/17 08:00 95.6 77 17 119/80 (93) 96 I/O 02/05/17 02/05/17 02/05/17 02/06/17 02/06/17 02/06/17 07:00 15:00 23:00 07:00 15:00 23:00 Intake Total 1360 ml 560 ml 720 ml 360 ml Output Total 325 ml 300 ml 450 ml 300 ml Balance 1035 ml 260 ml 270 ml 60 ml Intake Oral 360 ml 460 ml 720 ml 360 ml IV Total 1000 ml 100 ml Output Urine Total 325 ml 300 ml 450 ml 300 ml # Voids 2 # Bowel Movements 0 Result Diagram: 02/04/17 0740 02/04/17 0740 Procedures Left Laminectomy L23, L34, repair csf leak L23, posterior lumbar fusion L23, bone graft. Objective Remarks Sitting up in bed, RN at bedside NAD Nasal cannula removed L/S Dressing intact, no new drainage, mild spasms, some warmth but no erythema +motor quad, continued weakness left hip flexor, +sens distal, Both calves supple, neg homans Assessment & Plan Ortho Post Op Day #: 3 Problem List: (1) Lumbar disc herniation with radiculopathy ICD Codes: M51.16 - Intervertebral disc disorders with radiculopathy, lumbar region (2) Lumbar spine instability ICD Codes: M53.2X6 - Spinal instabilities, lumbar region (3) Degeneration of intervertebral disc of lumbar region ICD Codes: M51.36 - Other intervertebral disc degeneration, lumbar region Assessment and Plan pod#3 s/p Left Lami L23, L34; repair csf fistula left L23, PSF/PLIF L23, bone graft. He continues to do well. Slight cough but no difficulty breathing. Ok to d/c to rehab today after PT this morning. PO pain meds as needed. Dry dressing changes daily. PT - ok to sit up in bed and ambulate with assistance. We will make sure PT sees him today and tomorrow. Walker for gait assistance. Med following as pt has COPD, HTN, recent UTI. Nicotine patch for tobacco addiction/cessation F/U in 2 weeks as scheduled. DME written. Patti Diaz Feb 06, 2017 07:54
[2017-02-06] MEDS: cefTRIAXone INJ 1,000 MG in SODIUM CHLORIDE 0.9% INJ 100 ML IV SCH (09:00)
[2017-02-06] MEDS: SODIUM CHLORIDE 0.9% FLUSH 5 ML FLUSH IVF SCH (09:00)
[2017-02-06] MEDS: REMOVE OLD PATCH T-DERMAL SCH (09:00)
[2017-02-06] MEDS: PRASUGREL 10 MG TAB PO SCH (09:00)
[2017-02-06] MEDS: MULTIVITAMIN TAB PO SCH (09:01)
[2017-02-06] MEDS: METOPROLOL TARTRATE 25 MG TAB PO SCH (09:01)
[2017-02-06] MEDS: DOCUSATE SODIUM 100 MG CAP PO SCH (09:01)
[2017-02-06] MEDS: THIAMINE HCL 100 MG TAB PO SCH (09:01)
[2017-02-06] MEDS: FOLIC ACID 1 MG TAB PO SCH (09:01)
[2017-02-06] MEDS: DEXAMETHASONE 4 MG TAB PO SCH (09:01)
[2017-02-06] MEDS: DOXAZOSIN MESYLATE 4 MG TAB PO SCH (09:02)
[2017-02-06] MEDS: NICOTINE 21 MG/24 HR PATCH T-DERMAL SCH (09:03)
[2017-02-06] MEDS: BACLOFEN 20 MG TAB PO SCH ×2 (09:03→15:18)
[2017-02-06] MEDS: ATORVASTATIN 40 MG TAB PO SCH (09:03)
[2017-02-06] MEDS ORDERED: BACT800T5 PO (11:17)
[2017-02-06] MEDS ORDERED: LACTTAB8 PO (11:18)
--- NOTE | 2017-02-06 11:20 | HHI.PR ---
Subjective Remarks Patient is able to use a walker now and has been working well with PT. Plan for discharge to longterm facility today. Patient is medically clear for discharge. Objective Vital Signs Date Time Temp Pulse Resp B/P (MAP) Pulse Ox O2 Delivery O2 Flow Rate FiO2 02/06/17 07:51 96.6 79 18 145/83 (103) 97 02/06/17 04:10 98.0 79 16 130/86 (101) 96 02/06/17 00:00 97.4 77 16 139/83 (101) 98 02/05/17 20:00 97.6 87 20 142/85 (104) 97 02/05/17 16:00 97.0 68 17 136/75 (95) 98 02/05/17 12:00 96.9 79 17 125/67 (86) 97 I/O 02/05/17 02/05/17 02/05/17 02/06/17 02/06/17 02/06/17 07:00 15:00 23:00 07:00 15:00 23:00 Intake Total 1360 ml 560 ml 720 ml 360 ml Output Total 325 ml 300 ml 450 ml 300 ml Balance 1035 ml 260 ml 270 ml 60 ml Intake Oral 360 ml 460 ml 720 ml 360 ml IV Total 1000 ml 100 ml Output Urine Total 325 ml 300 ml 450 ml 300 ml # Voids 2 # Bowel Movements 0 Result Diagram: 02/04/1773902/04/17739 Objective Remarks GENERAL: NAD, A&Ox3 HEAD: Normocephalic. NECK: Supple, trachea midline. No lymphadenopathy. EYES: No scleral icterus. No injection or drainage. CARDIOVASCULAR: Regular rate and rhythm without murmurs, gallops, or rubs. RESPIRATORY: Breath sounds equal bilaterally. No accessory muscle use. GASTROINTESTINAL: Abdomen soft, non-tender, nondistended. MUSCULOSKELETAL: No cyanosis, or edema. SKIN: Warm and dry. NEURO: No focal neurological deficitis. A/P Problem List: (1) Coronary artery disease ICD Code: I25.10 - Atherosclerotic heart disease of [place] coronary artery without angina pectoris (2) Old [place] (myocardial infarction) ICD Code: I25.2 - Old myocardial infarction (3) Nicotine dependence ICD Code: F17.200 - Nicotine dependence, unspecified, uncomplicated (4) Alcohol abuse ICD Code: F10.10 - Alcohol abuse, uncomplicated (5) Chronic lower back pain ICD Code: M54.5 - Low back pain; G89.29 - Other chronic pain (6) BPH (benign prostatic hyperplasia) ICD Code: N40.0 - Benign prostatic hyperplasia without lower urinary tract symptoms (7) HTN (hypertension) ICD Code: I10 - Essential (primary) hypertension (8) Hyperlipidemia ICD Code: E78.5 - Hyperlipidemia, unspecified Assessment and Plan Assessment and plan 61-year-old male status post lumbar spine fusion. Doing well postop. Patient is eager work with PT. He continued to do physical therapy. Medically stable for discharge to longterm facility today. Continue Bactrim DS 1 tab by mouth twice a day for 5 more days to treat urinary tract infection. Probiotics also provided. Chronic lower back pain Postop lumbar spinal fusion Neurosurgery following When necessary pain treatments Postop at this point Postsurgical care and wound care Coronary artery disease History of old [place] Continue Effient Continue beta pam Continue statin Follow clinically for chest pain Lethargy Resolved BPH Continue doxazosin Nicotine dependence NicoDerm started Patient comes to quit Alcohol abuse Proximally 6 beers per day CIWA protocol initiated Daily thiamine Daily folic acid Daily multivitamin When necessary Ativan for withdrawal symptoms Urinary tract infection Ancef given preop and should cover the patient for now We'll start Rocephin in the morning 1 g IV every 24 hours. Hyperlipidemia Resume statin Follow as an outpatient Hypertension Resume metoprolol with blood pressures are stable and elevated DVT prophylaxis Discharge on Effient. Tony Ramirez MD Feb 06, 2017 11:20
[2017-02-06 11:40] VITALS: BP 121/69; PULSE 75; RESP 18; TEMP 96.7; O2SAT 97
[2017-02-06 13:05] VITALS: O2SAT 93
[2017-02-06 15:19] VITALS: BP 103/70; PULSE 82; RESP 17; TEMP 96.6
== END 2017-02-06 16:22 | DRG 460 ==
LOC: HSDI 02-03 05:52 → N06B 02-03 18:49
PROVIDERS: ADMIT Orthopaedic Surgery Orthopaedic Surgery of the Spine; ATTEND Orthopaedic Surgery Orthopaedic Surgery of the Spine
PROC: 0SG107J Fusion of 2 or more Lumbar Vertebral Joints with Autologous Tissue Substitute, Posterior Approach, Anterior Column, Open Approach (ICD-10-PCS; 2017-02-03)
PROC: 0QB30ZZ Excision of Left Pelvic Bone, Open Approach (ICD-10-PCS; 2017-02-03)
PROC: 0SB20ZZ Excision of Lumbar Vertebral Disc, Open Approach (ICD-10-PCS; 2017-02-03)
PROC: 00QT0ZZ Repair Spinal Meninges, Open Approach (ICD-10-PCS; 2017-02-03)
PROC: 0SG10AJ Fusion of 2 or more Lumbar Vertebral Joints with Interbody Fusion Device, Posterior Approach, Anterior Column, Open Approach (ICD-10-PCS; principal; 2017-02-03 09:01)
DX: M51.26 Other intervertebral disc displacement, lumbar region (principal); G96.0 Cerebrospinal fluid leak; I10 Essential (primary) hypertension; N39.0 Urinary tract infection, site not specified; M48.06 Spinal stenosis, lumbar region; M51.16 Intervertebral disc disorders with radiculopathy, lumbar region; M53.2X6 Spinal instabilities, lumbar region; E78.5 Hyperlipidemia, unspecified; G89.29 Other chronic pain; I25.10 Atherosclerotic heart disease of native coronary artery without angina pectoris; I25.2 Old myocardial infarction; J44.9 Chronic obstructive pulmonary disease, unspecified; M41.9 Scoliosis, unspecified; N40.0 Benign prostatic hyperplasia without lower urinary tract symptoms; F10.10 Alcohol abuse, uncomplicated; F17.210 Nicotine dependence, cigarettes, uncomplicated; Z95.5 Presence of coronary angioplasty implant and graft
CPT/HCPCS: 72100; 76000; 80048; 80053; 81001; 82140; 85025; 85027; 86850; 86900; 86901; 87086; 94150; C1713; J0131; J0690; J0696; J1170; J1580; J2270; J2370; J2405; J3010; J3370; J7050; J7120; J8540